=== PATIENT | female | born 1955 | race Caucasian/White ===

== ENCOUNTER 2023-02-12 10:03 | Day surgery (SDC) | payer MEDICAID ==
[2023-02-12] MEDS ORDERED: MIDAZOLAM 5 MG/5 ML VIAL ONE (11:02)
[2023-02-12] MEDS ORDERED: LIDOCAINE 2% 100 MG/5 ML UJET TP ONE (11:02)
[2023-02-12] MEDS ORDERED: fentaNYL citrate 0.05 MG/ML VIAL ONE (11:02)
[2023-02-12] MEDS ORDERED: MIDAZOLAM 5 MG/5 ML VIAL IV ONE (14:40)
[2023-02-12] MEDS ORDERED: fentaNYL citrate 0.05 MG/ML VIAL IVP ONE (14:40)
== END 2023-02-12 12:14 | disposition home or self-care (01) ==
LOC: MDS 10:03 → MMU 10:25 → MDS 12:14
PROVIDERS: ATTEND Internal Medicine Gastroenterology
DX: D50.9 Iron deficiency anemia, unspecified (principal); K62.5 Hemorrhage of anus and rectum; K64.8 Other hemorrhoids; K57.30 Diverticulosis of large intestine without perforation or abscess without bleeding; K29.50 Unspecified chronic gastritis without bleeding; B96.81 Helicobacter pylori [H. pylori] as the cause of diseases classified elsewhere; E78.00 Pure hypercholesterolemia, unspecified; M19.90 Unspecified osteoarthritis, unspecified site; Z90.710 Acquired absence of both cervix and uterus; Z79.899 Other long term (current) drug therapy
CPT/HCPCS: 43239; 45378; 88305; 88312; 88313; 88342; J2250; J3010